=== PATIENT | male | born 1970 | race Caucasian/White ===

== ENCOUNTER 2020-06-25 10:10 | Outpatient (CLI) | payer MEDICAID ==
[~2020-06-25] VITALS: Ht 182.9 cm; Wt 102.5 kg
[2020-06-25 10:35] VITALS: BP 142/89
[2020-06-25] MEDS ORDERED: LIPITOR10 MG ORAL (14:04)
[2020-06-25] MEDS ORDERED: METFORMIN HCL500 M1 ORAL (14:04)
[2020-06-25] MEDS ORDERED: TRULICITY0.75 MG/0. SQ (14:04)
[2020-06-25] MEDS ORDERED: JARDIANCE ORAL (14:04)
--- NOTE | 2020-06-28 08:14 | Consultation ---
DATE OF CONSULTATION: 06/27/2020 CHIEF COMPLAINT: Referral for screening colonoscopy. PAST MEDICAL HISTORY: 1. Diabetes. 2. Hypertension. 3. . 4. Knee pain. PAST SURGICAL HISTORY: Orthopedic surgeries. MEDICATIONS: Please see medication reconciliation list. FAMILY HISTORY: No family history of GI malignancies. SOCIAL HISTORY: The patient denies any tobacco, alcohol, drug use. ALLERGIES: To penicillin. REVIEW OF SYSTEMS: Positive for mild constipation, treated with stool softener. PHYSICAL EXAMINATION: VITAL SIGNS: Temperature 96.7, blood pressure 142/89, pulse 87, respirations 20. Height is 6 feet. Weight is 226. HEENT: Normocephalic and atraumatic. Sclerae are anicteric. NECK: Supple. No evidence of obvious lymphadenopathy. CARDIOVASCULAR: Regular rate and rhythm. Plus S1-S2. LUNGS: Clear to auscultation bilaterally. ABDOMEN: Positive bowel sounds. Soft and nontender. No rebound. No guarding. No peritoneal sign. EXTREMITIES: No cyanosis. No clubbing. No edema. ASSESSMENT AND PLAN: This is a 50-year male need for screening colonoscopy. Risks and benefits of procedure was explained to the patient. We will schedule him as soon as authorization is obtained. Thomas Gambino M.D. DR: Kathrine JOB#: [id number] CC:
== END 2020-06-25 12:10 | disposition home or self-care (01) ==
LOC: PAN 10:10
DX: K59.00 Constipation, unspecified (principal); Z88.0 Allergy status to penicillin; E11.9 Type 2 diabetes mellitus without complications; I10 Essential (primary) hypertension
CPT/HCPCS: 99203